=== PATIENT | female | born 1995 ===

== ENCOUNTER 2025-04-24 19:11 | Observation (INO) | payer MEDICAID ==
[2025-04-24 19:35] LABS: APPEARANCE,URINE SLIGHTLY CLOUDY (CLEAR); GLUCOSE,URINE NEGATIVE (NEGATIVE); OCCULT BLOOD,URINE MODERATE (NEGATIVE); PLATELET COUNT,PLT 275 10^3/uL (150-400); RED BLOOD CELL COUNT 3.96 x10^6/uL (4.00-5.50); WHITE BLOOD CELL COUNT,WBC 18.2 10^3/uL (4.0-11.0)
[2025-04-24 19:40] LABS: EPITHELIAL CELLS,URINE OCCASIONAL /HPF (NOT SEEN)
[2025-04-24 19:46] LABS: ALANINE AMINOTRANSFERASE,ALT 16 U/L (12-78); ASPARTATE AMNIOTRANSFERASE,AST 23 U/L (15-37); BILIRUBIN TOTAL 0.3 mg/dL (0.0-1.0); BLOOD UREA NITROGEN,BUN 16 mg/dL (7-18); CARBON DIOXIDE,CO2 22 mmol/L (21-32); CHLORIDE,CL 100 mEq/L (98-106); CREATININE 0.8 mg/dL (0.6-1.0); EST CRCL DRUG DOSING (CG) 81.33 mL/min; GLUCOSE RANDOM 113 mg/dL (75-99); POTASSIUM,K 3.8 mEq/L (3.5-5.0); PROTEIN TOTAL,TP 6.9 g/dL (6.4-8.2); SODIUM,NA 134 mEq/L (136-145)
[2025-04-24 19:49] LABS: ESTIMATED GFR 102 mL/min (>=60)
[2025-04-24 19:50] LABS: LYMPHOCYTES ABSOLUTE MAN 0.91 10^3/uL (1.00-4.80); LYMPHOCYTES PERCENT MAN 5 % (21-55); MONOCYTES ABSOLUTE MAN 0.18 10^3/uL (0.00-0.80); MONOCYTES PERCENT MAN 1 % (2-12); NEUTROPHILS ABSOLUTE MAN 17.11 10^3/uL (1.80-7.00); SEG NEUTROPHILS PERCENT MAN 94 % (35-85)
[2025-04-24] MEDS ORDERED: Ondansetron 4 MG/2 ML SDV IV PRN (20:54)
[2025-04-24] MEDS: Ondansetron 4 MG Tab.DIS PO PRN (21:22)
[2025-04-25] MEDS ORDERED: IRON FUM PO SCH ×2 (08:00)
[2025-04-25] MEDS ORDERED: FOLIC PO SCH ×2 (08:00)
[2025-04-25] MEDS ORDERED: PRENATAL VIT PO SCH ×2 (08:00)
[2025-04-25 09:05] LABS: BASOPHILS ABSOLUTE AUTO 0.03 10^3/uL (0.00-0.50); BASOPHILS PERCENT AUTO 0.3 % (0-1); EOSINOPHILS ABSOLUTE AUTO 0.03 10^3/uL (0.00-1.50); EOSINOPHILS PERCENT AUTO 0.3 % (0-6); IMMATURE GRAN ABSOLUTE AUTO 0.04 10^3/uL (0.00-0.49); IMMATURE GRAN PERCENT AUTO 0.3 % (0.0-4.9); LYMPHOCYTES ABSOLUTE AUTO 1.34 10^3/uL (0.60-5.00); LYMPHOCYTES PERCENT AUTO 11.3 % (24-44); MONOCYTES ABSOLUTE AUTO 0.76 10^3/uL (0.00-1.50); MONOCYTES PERCENT AUTO 6.4 % (0-10); NEUTROPHILS ABSOLUTE AUTO 9.69 x10^3/uL (1.80-8.00); NEUTROPHILS PERCENT AUTO 81.4 % (41-71); PLATELET COUNT,PLT 251 10^3/uL (150-400); RED BLOOD CELL COUNT 3.44 x10^6/uL (4.00-5.50); WHITE BLOOD CELL COUNT,WBC 11.9 10^3/uL (4.0-11.0)
[2025-04-25 09:17] LABS: ALANINE AMINOTRANSFERASE,ALT 15 U/L (12-78); ASPARTATE AMNIOTRANSFERASE,AST 20 U/L (15-37); BILIRUBIN TOTAL 0.4 mg/dL (0.0-1.0); BLOOD UREA NITROGEN,BUN 11 mg/dL (7-18); CARBON DIOXIDE,CO2 23 mmol/L (21-32); CHLORIDE,CL 104 mEq/L (98-106); CREATININE 0.8 mg/dL (0.6-1.0); EST CRCL DRUG DOSING (CG) 81.33 mL/min; GLUCOSE RANDOM 109 mg/dL (75-99); POTASSIUM,K 3.6 mEq/L (3.5-5.0); PROTEIN TOTAL,TP 5.9 g/dL (6.4-8.2); SODIUM,NA 135 mEq/L (136-145)
[2025-04-25 09:18] LABS: ESTIMATED GFR 102 mL/min (>=60)
[2025-04-25] MEDS: Iron Sucrose Complex 100 MG/5 ML SDV IVPUSH ONE (14:35)
[2025-04-25 19:18] VITALS: PULSE 74
[2025-04-25 19:42] VITALS: BP 110/72
[2025-04-25 22:42] LABS: % TRANSFERRIN SAT 2.8 % (20.0-50.0); TIBC 609.0 ug/dL (261-478); UIBC 592.0 ug/dL (155-355)
== END 2025-04-25 18:05 | disposition home or self-care (01) ==
LOC: CC.ED 19:11 → CC.MS 20:35 → UNDOADMOB 20:36 → CC.ED 20:57 → UNDOADMOB 21:08 → CC.MS 21:08
PROVIDERS: ADMIT Nurse Practitioner Family; ATTEND Nurse Practitioner Family
DX: O99.891 Other specified diseases and conditions complicating pregnancy (principal); R10.32 Left lower quadrant pain; O99.012 Anemia complicating pregnancy, second trimester; D50.9 Iron deficiency anemia, unspecified; R11.0 Nausea; Z3A.16 16 weeks gestation of pregnancy; Z79.899 Other long term (current) drug therapy
CPT/HCPCS: 36415; 76770; 76805; 80053; 81001; 81025; 82728; 83540; 83550; 84702; 85025; 86140; 96360; 99223; 99238; 99284-25; A9270-GY; J1756; J7030